=== PATIENT | male | born 1995 | race Caucasian/White ===

== ENCOUNTER 2024-11-08 21:54 | Emergency (ER) | payer OTHER ==
[~2024-11-08] VITALS: Ht 172.7 cm; Wt 63.0 kg
[2024-11-08 22:26] VITALS: BP 115/75; PULSE 79; RESP 16; TEMP 36.6; O2SAT 99
== END 2024-11-08 22:30 | disposition left against medical advice (07) ==
LOC: ER 21:54
DX: F41.0 Panic disorder [episodic paroxysmal anxiety] (principal); Z53.21 Procedure and treatment not carried out due to patient leaving prior to being seen by health care provider